=== PATIENT | male | born 2005 | race Two or more races ===

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

== ENCOUNTER 2023-08-13 17:46 | Emergency (ER) | payer BC ==
[~2023-08-13] VITALS: Ht 175.3 cm; Wt 68.6 kg
[2023-08-13 19:28] VITALS: BP 138/70; PULSE 70; RESP 16; TEMP 98.6; O2SAT 98
[2023-08-13] MEDS ORDERED: HYDR-4902 PO (20:43)
[2023-08-13] MEDS ORDERED: CYCL-839 PO (20:43)
[2023-08-13] MEDS: HYDROcodone-ACET 5/325MG TAB PO ONE (21:38)
[2023-08-13] MEDS: KETOROLAC TROMETH 60MG/2ML VIAL IM ONE (21:39)
[2023-08-13] MEDS: DexAMETHasone SOD PHOS 10MG/1ML VIAL INJ IM ONE (21:40)
== END 2023-08-13 21:56 | disposition home or self-care (01) ==
LOC: ER 17:46
DX: M51.36 Other intervertebral disc degeneration, lumbar region (principal); M62.830 Muscle spasm of back
CPT/HCPCS: 72131; 96372; 99285; J1100; J1885